=== PATIENT | female | born 1940 | race Hispanic/Latino ===

== ENCOUNTER 2019-05-12 12:04 | Day surgery (SDC) | payer MEDICARE ==
[~2019-05-12 12:04] MED LIST: APRACLONIDINE 1% OPHTH SOLN DROPERETTE ONE; APRACLONIDINE 1% OPHTH SOLN DROPERETTE OU ONE; PHENYLEPHRINE 10% OPHTH SOLN 5 ML ONE; PHENYLEPHRINE 10% OPHTH SOLN 5 ML OU ONE; TROPICAMIDE 1% OPHTH SOLN 3 ML ONE; TROPICAMIDE 1% OPHTH SOLN 3 ML OU ONE
[2019-05-12] MEDS ORDERED: PHENYLEPHRINE 10% OPHTH SOLN 5 ML OU ONE (12:07)
[2019-05-12] MEDS ORDERED: APRACLONIDINE 1% OPHTH SOLN DROPERETTE OU ONE ×2 (12:07→12:33)
[2019-05-12] MEDS ORDERED: TROPICAMIDE 1% OPHTH SOLN 3 ML OU ONE (12:07)
[2019-05-12 12:19] VITALS: BP 151/74
== END 2019-05-12 12:37 | disposition home or self-care (01) ==
LOC: OR 12:04
PROVIDERS: ATTEND Ophthalmology
DX: E11.36 Type 2 diabetes mellitus with diabetic cataract (principal); H26.492 Other secondary cataract, left eye; H26.491 Other secondary cataract, right eye; I10 Essential (primary) hypertension; J45.909 Unspecified asthma, uncomplicated; K21.9 Gastro-esophageal reflux disease without esophagitis; M19.90 Unspecified osteoarthritis, unspecified site; Z88.5 Allergy status to narcotic agent; Z87.891 Personal history of nicotine dependence; Z79.84 Long term (current) use of oral hypoglycemic drugs; Z79.899 Other long term (current) drug therapy; Z98.41 Cataract extraction status, right eye; Z98.42 Cataract extraction status, left eye; Z90.710 Acquired absence of both cervix and uterus; Z96.651 Presence of right artificial knee joint; Z98.890 Other specified postprocedural states; Z86.2 Personal history of diseases of the blood and blood-forming organs and certain disorders involving the immune mechanism
CPT/HCPCS: 82962